=== PATIENT | male | born 1960 | race Caucasian/White ===

== ENCOUNTER 2017-01-06 15:45 | Outpatient (CLI) | payer MEDICAID ==
[2017-01-06 16:00] LABS: HGB - HEMOGLOBIN 12.9 g/dL (14.0-18.0); MEAN CORPUSCULAR HEMOGLOBIN 29.4 pg (27.0-31.0); MEAN CORPUSCULAR HGB CONC 33.8 g/dL (32.0-36.0); MEAN CORPUSCULAR VOLUME 86.8 fL (80.0-94.0); MEAN PLATELET VOLUME 7.3 fL (7.4-11.4); RED BLOOD COUNT 4.38 10^6/uL (4.70-6.10); RED CELL DISTRIBUTION WIDTH 14.7 % (12.0-15.0)
[2017-01-06 16:11] LABS: ALBUMIN/GLOBULIN RATIO 1.3 (1.0-2.2); BILIRUBIN,TOTAL 0.3 mg/dL (0.2-1.0); CREATININE 1.7 mg/dL (0.6-1.2); POTASSIUM 3.9 mmol/L (3.5-5.0); TOTAL PROTEIN 7.6 g/dL (6.7-8.2)
== END 2017-01-06 15:46 | disposition home or self-care (01) ==
LOC: LAB 15:45
PROVIDERS: ATTEND Internal Medicine Pulmonary Disease
DX: D86.0 Sarcoidosis of lung (principal)
CPT/HCPCS: 36415; 80053

== ENCOUNTER 2017-03-04 16:02 | Outpatient (CLI) | payer MEDICAID | END 2017-03-04 16:03 | disposition home or self-care (01) | LOC: LAB 16:02 | PROVIDERS: ATTEND Internal Medicine Pulmonary Disease | DX: D86.0 Sarcoidosis of lung (principal) | CPT/HCPCS: 36415; 80053; 85025 ==

== ENCOUNTER 2018-04-13 15:32 | Outpatient (CLI) | payer MEDICAID | END 2018-04-13 15:33 | disposition home or self-care (01) | LOC: LAB 15:32 | PROVIDERS: ATTEND Urology | DX: R97.20 Elevated prostate specific antigen [PSA] (principal) | CPT/HCPCS: 36415; 84153 ==

== ENCOUNTER 2018-10-26 17:23 | Outpatient (CLI) | payer MEDICAID ==
--- NOTE | 2018-10-27 14:38 | Ultrasound Report ---
Reason: URINARY RETENTION Procedure Date: 10/26/2018 Accession Number: [id number] / [id number] Procedure: US - Retroperitoneal CPT Code: FULL RESULT: EXAM: RENAL ULTRASOUND EXAM DATE: 10/26/2018 06:18 PM. CLINICAL HISTORY: Urinary retention. COMPARISON: None. TECHNIQUE: Real-time scanning was performed with static images obtained. FINDINGS: Right Kidney: 9.5 x 4.8 x 4.4 cm. Diffuse increase in cortical echotexture. 3 cm unilocular simple cyst upper pole. 2 lower pole anechoic simple cysts, 14 and 9 mm respectively. No stone or hydronephrosis. Left Kidney: 10.9 x 4.8 x 5.3. cm. Diffuse increase in cortical echotexture. Anechoic simple unilocular upper pole cyst 2.9 cm. 2 adjacent mid pole anechoic cysts 10 and 9 mm. No stone or hydronephrosis. Bladder: Bilateral jets seen. The prevoid bladder volume was 556 cc. The postvoid bladder volume was 462 cc. Other: The visualized prostate measures 4 x 3.2 x 4.4 cm. Estimated volume 30.5 cc. IMPRESSION: 1. Bilateral increased echotexture to the renal parenchyma suggests underlying medical renal disease. 2. Bilateral simple appearing cysts as delineated. 3. Very large postvoiding residual. RADIA
== END 2018-10-26 17:24 | disposition home or self-care (01) ==
LOC: DI 17:23
PROVIDERS: ATTEND Urology
DX: R33.9 Retention of urine, unspecified (principal); Q61.02 Congenital multiple renal cysts
CPT/HCPCS: 76770

== ENCOUNTER 2019-01-23 13:50 | Outpatient (CLI) | payer MEDICAID ==
--- NOTE | 2019-01-24 14:43 | CT Report ---
Reason: INCISIONAL HERNIA, WITHOUT OBSTRUCTION OF GANGRENE Procedure Date: 01/23/2019 Accession Number: [id number] / [id number] Procedure: CT - Abdomen/Pelvis WO CPT Code: FULL RESULT: EXAM: CT ABDOMEN AND PELVIS (CT KUB) EXAM DATE: 01/23/2019 02:10 PM. CLINICAL HISTORY: INCISIONAL HERNIA, WITHOUT OBSTRUCTION OF GANGRENE. COMPARISONS: RETROPERITONEAL 10/26/2018 5:44 PM CHEST W/O 03/12/2013 1:35 AM. TECHNIQUE: Routine axial helical CT imaging was performed through the abdomen and pelvis without IV contrast. Reconstructions: Coronal and sagittal. In accordance with CT protocol optimization, one or more of the following dose reduction techniques were utilized for this exam: automated exposure control, adjustment of mA and/or KV based on patient size, or use of iterative reconstructive technique. FINDINGS: Lung Bases: Small hiatal hernia and moderate pulmonary scarring at the bases. Evidence of previous granulomatous disease. Right Kidney/Ureter: No stones, hydronephrosis, or hydroureter. No perinephric fat stranding. Small cysts suspected. Left Kidney/Ureter: No stones, hydronephrosis, or hydroureter. No perinephric fat stranding. Multiple cysts measuring up to 3 cm at the upper pole. Other Solid Organs: Noncontrast images of the solid organs are grossly unremarkable. Gallbladder/Bile Ducts: Unremarkable. Peritoneal Cavity: No free fluid, free air or benoit adenopathy. Bowel is grossly unremarkable. Pelvic Organs: No bladder stones or wall thickening. Noncontrast images of the visualized pelvic organs are unremarkable. Vasculature: Unremarkable. Other: Small fat-containing left periumbilical hernia . There is mild injection of the fat within the hernia sac and entering the hernia sac. No bowel involvement. Hernia defect measures approximately 1 x 1.5 cm with a larger 3 x 2.5 x 3 cm hernia sac. IMPRESSION: 1. No urinary tract stones or obstruction. 2. Small fat-containing left periumbilical hernia. There is mild injection of the fat within the hernia sac and entering the hernia sac which can be due to fat inflammation/early incarceration in the proper clinical setting. No bowel involvement. 3. Small hiatal hernia. RADIA
== END 2019-01-23 13:51 | disposition home or self-care (01) ==
LOC: DI 13:50
PROVIDERS: ATTEND Student in an Organized Health Care Education/Training Program
DX: K43.2 Incisional hernia without obstruction or gangrene (principal); K44.9 Diaphragmatic hernia without obstruction or gangrene
CPT/HCPCS: 74176

== ENCOUNTER 2020-11-24 07:00 | Outpatient (CLI) | payer MEDICAID | END 2020-11-24 23:59 | disposition home or self-care (01) | LOC: COV 07:00 | PROVIDERS: ATTEND Physician Assistant Medical | DX: Z01.812 Encounter for preprocedural laboratory examination (principal); Z20.822 Contact with and (suspected) exposure to COVID-19 ==

== ENCOUNTER 2021-12-02 16:02 | Outpatient (CLI) | payer MEDICAID ==
--- NOTE | 2021-12-02 17:42 | Ultrasound Report ---
PROCEDURE: Retroperitoneal INDICATIONS: URINARY RETENTION TECHNIQUE: Real-time scanning was performed of the kidneys and bladder, with image documentation. COMPARISON: Correlation is made with prior CT, 01/23/2019 and prior ultrasound, 10/26/2018. FINDINGS: Kidneys: Kidneys are normal in size. Right kidney measures 9.5 cm long; left kidney measures 9.8 cm long. Right renal cortical thickness is 1.1 cm; left renal cortical thickness is 1.5 cm. No solid masses, hydronephrosis, or nephrolithiasis. Multiple bilateral simple appearing renal cysts are seen . Bladder: Pre-void bladder volume is 121 mL. The patient was unable to void. Pre-void images demonstr ate no intraluminal masses or stones. On pre-void images, both ureteral jets are noted with color Do ppler interrogation. (Of note, ureteral jets may not be detectable in up to 25% of cases due to insu fficient differences in specific gravity between ureteral and bladder urine). Miscellaneous: No free abdominal fluid. The prostate measures 3.9 x 3.7 x 2.6 cm. IMPRESSION: Urinary retention, with the patient unable to void, despite a bladder volume measurement of 121 cc. Reviewed by: Vitor Olguin MD on 12/02/2021 4:41 PM [facility] Approved by: Vitor Olguin MD on 12/02/2021 4:41 PM CH[facility] Station ID: [id number]
== END 2021-12-02 16:03 | disposition home or self-care (01) ==
LOC: DI 16:02
PROVIDERS: ATTEND Physician Assistant Medical
DX: R33.9 Retention of urine, unspecified (principal)